=== PATIENT | male | born 1980 | race Caucasian/White ===

== ENCOUNTER 2024-02-02 21:56 | Emergency (ER) | payer OTHER, SELFPAY ==
[2024-02-02 22:21] VITALS: BP 149/97; PULSE 92; RESP 18; TEMP 36.2; O2SAT 97; BMI 24.0
[2024-02-02 23:49] VITALS: BP 140/90; PULSE 88; RESP 20; TEMP 36.4; O2SAT 96
== END 2024-02-03 03:21 | disposition left against medical advice (07) ==
PROVIDERS: Emergency Provider Emergency Medicine; PCP Internal Medicine Endocrinology, Diabetes & Metabolism
DX: R21 Rash and other nonspecific skin eruption (principal)
CPT/HCPCS: 99281